=== PATIENT | male | born 1940 | race Caucasian/White ===

== ENCOUNTER 2016-12-14 04:52 | Inpatient (IN) | payer MEDICARE, OTHER ==
[~2016-12-14 04:52] MED LIST: CINNAMON500 M1 PO; COQ-10100 M1 PO; GLUCOSAMINE &1 EAC1 PO; ISOSORBIDE MONO30 M4 PO; LIPITOR80 M1 PO; LOPRESSOR50 M1 PO; LOW DOSE ASPIRI81 M3 PO; MELATONIN10 M6 PO; MULTIVITAMINS1 EAC6 PO; NITROGLYCERIN0.4 M2 PO; NORVASC5 M2 PO; ODOR FREE GARL1 EAC1 PO; PROSCAR5 M1 PO; TUMERIC PO; [UNRECOGNIZED DRUG - OTHER] PO
[2016-12-14 05:33] LABS: PROTHROMBIN TIME 11.1 SECONDS (9.0-13.6)
[2016-12-15 05:55] LABS: BASO % 0.2 % (0-2); EOS % 1.3 % (0-7); EOSINOPHIL ABSOLUTE COUNT 0.1 tho/cmm (0.0-0.7); HCT-HEMATOCRIT 33.4 % (36.0-53.5); HGB-HEMOGLOBIN 11.1 gm/dl (13.5-17.0); IMMATURE GRANULOCYTES ABSOLUTE 0.01 tho/cmm (0-0.03); IMMATURE GRANULOCYTES PERCENT 0.1 % (0-0.3); LYMPH % 18.3 % (20-45); LYMPH ABSOLUTE COUNT 1.6 tho/cmm (0.8-4.5); MCH (MEAN CORPUSCULAR HGB) 31.9 pg (28.0-32.0); MCHC MEAN CORPUSCULAR HGB CONC 33.2 % (32.0-36.0); MONO % 12.1 % (0-12); MONOCYTE ABSOLUTE COUNT 1.1 tho/cmm (0.0-1.2); NEUTROPHIL ABSOLUTE COUNT 6.1 tho/cmm (1.6-8.0); NEUTROPHIL-AUTOMATED 6.1 tho/cmm (1.6-8.0); PLATELET COUNT 162 tho/cmm (150-450); RED BLOOD COUNT 3.48 mil/cmm (4.40-5.70); RED CELL DISTRIBUTION WIDTH 13.3 % (12.4-16.4); WHITE BLOOD COUNT 8.9 tho/cmm (4.0-10.0)
[2016-12-16 11:24] LABS: TSH-THYROID STIMULATING HORM. 0.3 uIU/ml (0.40-3.80)
[2016-12-16] MEDS ORDERED: TYLENOL325 M2 PO (12:08)
[2016-12-16] MEDS ORDERED: MOBIC7.5 M2 PO (12:09)
[2016-12-16] MEDS ORDERED: ROXICODONE5 M2 PO (12:09)
== END 2016-12-16 13:00 | DRG 470 ==
LOC: SHSC 04:52 → ORE 07:40 → PACU 09:03 → 5EA 10:05
PROVIDERS: Family Medicine; ADMIT Orthopaedic Surgery Foot and Ankle Surgery
PROC: 0SR902Z Replacement of Right Hip Joint with Metal on Polyethylene Synthetic Substitute, Open Approach (ICD-10-PCS; principal; 2016-12-14)
DX: M16.11 Unilateral primary osteoarthritis, right hip (principal); Z96.642 Presence of left artificial hip joint; I44.7 Left bundle-branch block, unspecified; F03.90 Unspecified dementia, unspecified severity, without behavioral disturbance, psychotic disturbance, mood disturbance, and anxiety; D62 Acute posthemorrhagic anemia; I25.10 Atherosclerotic heart disease of native coronary artery without angina pectoris; Z95.1 Presence of aortocoronary bypass graft; I10 Essential (primary) hypertension; N40.0 Benign prostatic hyperplasia without lower urinary tract symptoms
CPT/HCPCS: C1776; J0171; J0690; J1885; J2270; J2405; J2795